=== PATIENT | female | born 1995 | race Caucasian/White ===

== ENCOUNTER 2017-08-27 15:45 | Emergency (ER) | payer MEDICAID ==
[~2017-08-27] VITALS: Ht 177.8 cm; Wt 147.4 kg
[2017-08-27 17:38] LABS: URINE BILIRUBIN NEGATIVE (Negative); URINE BLOOD NEGATIVE (Negative); URINE CLARITY SL CLOUDY; URINE COLOR YELLOW; URINE GLUCOSE-RANDOM* NEGATIVE (Negative); URINE KETONES 3+ (Negative); URINE LEUKOCYTES 1+ (Negative); URINE NITRITE POSITIVE (Negative); URINE PROTEIN (DIPSTICK) NEGATIVE (Negative); URINE SPECIFIC GRAVITY >= 1.030 (1.005-1.035); URINE UROBILINOGEN 0.2 E.U./dl (0.2-1.0)
[2017-08-27 17:47] LABS: SQUAMOUS >10 Many /LPF (0-3)
[2017-08-27 17:48] LABS: BACTERIA >30 Many /HPF (None Seen); CASTS None Seen /LPF (None Seen); CRYSTALS None Seen /LPF (None Seen); URINE RBC None Seen /HPF (0-2); URINE WBC 0-5 Rare /HPF (0-5)
[2017-08-27 17:58] LABS: HEMATOCRIT 40.7 % (37.0-47.0); HEMOGLOBIN 14.1 gm/dL (12.0-15.0); MCH 29.5 pg (26.0-34.0); MCHC 34.6 g/dL (28.0-37.0); MCV 85.1 fL (80.0-100.0); PLATELET COUNT 204 thou/uL (150-400); RBC 4.78 mil/uL (4.20-5.00); RDW 13.9 % (10.5-14.5); WBC 8.7 thou/uL (4.0-11.0)
[2017-08-27 18:10] LABS: CALCIUM 9.2 mg/dL (8.5-10.1); CREATININE 0.7 mg/dL (0.6-1.0); POTASSIUM 3.9 mmol/L (3.5-5.1)
[2017-08-27 18:18] LABS: ALBUMIN 3.7 g/dL (3.4-5.0); TOTAL BILIRUBIN 0.4 mg/dL (<0.1-1.0)
[2017-08-27 18:20] LABS: ANISOCYTOSIS 1+; POLYCHROMASIA OCCASIONAL
[2017-08-27] MEDS ORDERED: REGLAN 10 MG TA10 MG PO (18:23)
[2017-08-27] MEDS ORDERED: KEFLEX500 M1 PO (18:23)
== END 2017-08-27 18:32 | disposition home or self-care (01) ==
LOC: EDBD 15:45 → ER 15:45
PROVIDERS: Nurse Practitioner Family
DX: O23.41 Unspecified infection of urinary tract in pregnancy, first trimester (principal); Z3A.12 12 weeks gestation of pregnancy; R11.2 Nausea with vomiting, unspecified